=== PATIENT | female | born 1985 | race Caucasian/White ===

== ENCOUNTER 2017-02-19 09:50 | Day surgery (SDC) | payer MEDICAID ==
--- NOTE | 2017-02-18 11:19 | PDGENHP ---
History and Physical - Chief Complaint Right Hip Pain - History of Present Illness Diagnosis: 1. Bilateral~Femoroacetabular impingement (NORAH) Cam type, with~resultant labral tear; RIGHT SIDE SYMPTOMATIC 2. Bilateral~Hip Dyplasia 3. ~~Early Arthritis 4. ~~Clinical suspicion of antetorsion HISTORY OF PRESENT ILLNESS: Anais a 31 y.o.~very ~active female~who I have had the pleasure to consult on today. I have enjoyed meeting her. She~lives in [place], [place], but plans on moving back to [place] in January. 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 ~She~is single; she~has no children. ~ Anaenjoys snowboarding, flag football, basketball, outdoor activities. Gina's right~hip pain started March 2016, with little~recalled trauma or injury, feeling her initial pain following a run, and with no~previous complaints. Anahas~a known history of hip dysplasia. Presentation today is of anterior and posterior right~hip pain. ~The hip does~ wake her~at night and does~click and catch on her. Sitting can be a real struggle~for her. Anadoes~report intermittent suffering from lower back pain episodes. Anahas not~participated in physical therapy and has not~tried other conservative measures. ~~She~has not~received sufficient symptomatic improvement. Anahas~utilized medication for pain management, including NSAID~and recently a Medrol Dose Pack. Anahas used medication for several months. Anacomplains of intermittent~issues with the left~hip. ~ Anaunderstands that she~has a hip and pelvis problem which should be researched and wishes to get a better understanding of her~hip status, followed by an establishment of a treatment strategy, hoping sheJamawould be able to get back to her~well being active life. History: Past medical history: ~ None which is relevant Relevant familial history: Adult Onset Diabetes - Maternal Past surgical history: Left Shoulder Elba Anadenies problematic issues with general anesthesia in the past. I have reviewed, verified and agree with the past medical, surgical, family and social history. Current Medications:~has a current medication list which includes the following prescription(s): ibuprofen. ALLERGIES:~has No Known Allergies. Objective: Physical Examination: Gina~is 5~feet 9~inches tall and weighs 144.6 Lbs. Gina~is AAO x3; she~is well -nourished, in NAD. Skin is warm and dry. ~Breathing is non-labored. ~CV with RRR by pulse. Abdomen is soft, NTND. Currently, she~walks with a abnormal antalgic, favoring left side~gait. Trendelenburg sign is negative~and proprioception is reduced, right~side. She~presents with moderate~signs of joint laxity. Beightons Score: 4 Lower spine examination is negative~for sciatic or femoral nerve irritation with negative~SLR &~femoral stretch tests. Range of motion of the spine is normal~for flexion, extension, and rotations, with no~associated pain. Strength, Sensation and pulses are normal - bilaterally Ankles and knees exams are normal~and no~mal-alignment is evident. She~has~left~.5~cm short leg length discrepancy. Thigh circumference is symmetric~with no evidence for muscle atrophy~on both~ sides. Hip ROM (degrees): FL ER At 90~hip FL IR At 90~hip FL AB AD EX IR Neutral hip ER Neutral hip R 105 45 40 40 5 10 55 35 L 100 45 40 40 5 10 55 35 Specific hip and pelvis tests: Quadrant MILAD Roll Add. Longus R +++ +++ +++ Negative L Negative Negative Negative Negative Glut. Med ITB Pos. Imp R Negative 5/5 strength Negative 5/5 strength Negative L Negative 5/5 strength Negative 5/5 strength Negative Squeeze test measured normal Bony Symphysis pubis is pain free~to touch while concentric activity of the rectus abdominis, does not~produce pain at its insertion. Ilio Psos specific tests are negative for pain during cycling for both hips~and remarkable for non painful snap~on the left. HF has weakness and pain on the the right hip. Anterior/lateral~capsule tenderness on the right side.~ Greater trochanteric burse is painful~on the right hip. Piriformis tests: FAIR is negative, with no~local signs of neuritis related to sciatic nerve. SIJs examination is normal~with normal~MILAD in relation and local tenderness. Hamstrings tests are negative~functional contraction and negative~tendinopathy both hips. On a daily basis, the following percentages reflect Gina's overall total pain: Deep hip: 100% Imaging: Radiology studies which I have personally reviewed, analyzed and measured are below: XR: AP of the hip and pelvis: Performed in a good~technique Coccyx to pubic symphysis distance 1.6~cm. 14~degrees caudal [place] Lines are preserved. Minimal~Pathological signs are seen in the Symphysis Pubis. Minimal~Pathological signs are seen at the Ischial tuberosity. ~ Specific measurements show: NSA~ LCE Sourcil~Angle Sharp's angle Lat. Cam Lat. Pincer C.Over~sign Head~Coverage % ATDmm R N 11 13 41 + - 12-1 69 N L N 18 13 43 + - 12-1 71 N Pos. wall sign ISS NAD ~~Dysplasia Comments R Negative Negative 16.2~mm ++ L Negative Negative 13.1~mm ++ Sclerosis Sup. Lat. OA Cysts Joint Space-WBZ Joint Space-Medial R Negative Negative Negative 3.5~mm 4.2~mm L Negative Negative Negative 3.5~mm 3.8~mm X Table lateral: Anterior cam lesion is seen~on both hips. Alpha Angle: ~ Right 81~dergrees Left 72~degrees Impression and plan: Anais a 31 y.o.~active female~suffering from symptomatic right~hip pain due to Femoroacetabular impingement (NORAH) Cam type, with~resultant labral tear and~ Hip Dyplasia,~causing significant disability to her~and altering her~sport and life activities. Physical examination, imaging, and her~story correspond with the diagnosis mentioned above. I explained that hip dysplasia is a condition wherein the hip joint has excessive play~and instability due to a variety of factors, including the depth and adequacy of the socket, the orientation of the femur bone, and ligament laxity around the hip joint. Dysplasia ranges in severity from borderline to baljinder, with treatment options being specific to the specific nature of the problem. Left untreated, the instability in the hip joint can cause progressive tearing of the labrum and deterioration of the surface cartilage, ultimately resulting in progressive osteoarthritis of the hip. I explained that femoroacetabular impingement (NORAH - Cam type) arises due to a bony or soft tissue conflict between the femur (ball) and acetabulum (socket) caused by an abnormality in the shape of the femoral head and neck. Over time, repetitive impingement can result in damage to the labrum and adjacent surface cartilage within the socket, ultimately giving rise to progressive osteoarthritis of the hip. I explained that although a labral tear can be a source of pain, it is rarely the root of the problem and typically occurs secondary to an underlying abnormality in the shape and mechanics of the hip joint. I reviewed conservative treatment options for Dysplasia and NORAH including activity modification to avoid positions of impingement or instability, physical therapy, non-steroidal anti-inflammatory medications, and various injections (corticosteroid and PRP) aimed at reducing inflammation in the hip joint or/and preventing dynamic instability and impingement. PRP injections may promote healing and reduce symptoms in certain cases but it will not repair chronically damaged tissue. Although these measures may help to buy time~and reduce current level of symptoms, they are not a definitive solution to the problem given the underlying abnormality in the shape of the hip joint. Patients who have failed conservative management and continue to experience symptoms are candidates for definitive surgical treatment, which may consist of hip arthroscopy alone or in combination with more invasive bony realignment procedures of the hip socket and/or femur called periacetabular osteotomy (JOLEEN) or derotational femoral osteotomy (DFO). Hip arthroscopy typically includes treating the labrum with either repair or reconstruction of the torn labrum; as well as addressing the underlying abnormalities by restoring the normal shape to the hip joint. If the cartilage is damaged a Microfracture surgical procedure may also be necessary to help stimulate the growth of fibrocartilage. If a patient requires a labral reconstruction or a Microfracture, the initial rehabilitation from the surgery may take longer, but the termite control representative results are typically favorable. I reviewed the technical aspects of periacetabular osteotomy (JOLEEN) including risks, benefits, and expected course of recovery. Gina~understands that JOLEEN is an inpatient procedure carried out through two medium sized incisions on the front and back of the hip joint. The hip socket is cut, realigned, and stabilized with 2 3 internal screws. Risks include infection, bleeding, injury to nearby nerves or vessels, stiffness, persistent pain, instability, failure of bony healing, implant related complications, and venous thromboembolic disease. Rarely, revision surgery may be required to address these problems. Risks, potential complications, side effects and recovery from surgical procedure were discussed in length. We explained how this surgery is an open procedure, and though patients tend to do well in the long-term, it involves significant pain in the first 2-4 weeks post-op and a rather lengthy rehab.~Overall recovery takes approximately 6 12~months depending on the extent of damage and degree of repair. Anaunderstands that she~will undergo hip arthroscopy 1 week prior to the JOLEEN to address damage inside the hip joint. Anaunderstands that hip arthroscopy and JOLEEN are two separate procedures that are best performed one week apart, with the arthroscopy commencing first to "tighten up" any pathology evident in the hip joint (labral repair, etc.) and the JOLEEN open procedure occurring 7-10 days later to realign the acetabulum. Anawill review the info presented. In order to obtain more detailed information regarding the alignment, orientation, and shape of the bony hip and pelvis I will order a CT scan to be performed. The results of the CT scan, including femoral torsion and acetabular version measured values and 3D images, will aid me in deciding on the best treatment strategy and surgical pre-planning. In order to evaluate the integrity of the surface cartilage within the hip joint , I will order a delayed gadolinium enhanced MRI of cartilage (dGEMRIC). This study will determine whetherRobelis a good candidate for hip preservation surgery. Anawill contact us if she~wishes to pursue further treatment in the future. Anais happy with this plan. I have also supplied her~with handouts, outlining the expected surgical treatment and rehab involved. I wish~Anaall the best, ~~ Marissa Ott ATC History Information - Allergies/Home Medication List Allergies/Adverse Reactions: No Known Allergies Allergy (Unverified 01/15/17 16:47) Home Medications: Naproxen Sodium [Aleve 220 MG (*)] 440 mg PO DAILY PRN 01/15/17 [Last Taken Unknown] Ibuprofen PRN 01/17/17 [Last Taken Unknown] I have personally reviewed and updated: medical history - Social History Smoking Status: Never smoked Review of Systems Review of Systems: Physical Exam Physical Exam:
[2017-02-19] MEDS ORDERED: ceFAZolin 2 GM/SWFI 2 GM/20 ML SYR IVP ONE (10:15)
[2017-02-19] MEDS ORDERED: PREGABALIN 150 MG CAP PO ONE (10:15)
[2017-02-19] MEDS ORDERED: ACETAMINOPHEN 500 MG TAB PO ONE (10:15)
[2017-02-19] MEDS ORDERED: LIDOCAINE 1% 2 ML INJ ID PRN (10:16)
[2017-02-19] MEDS ORDERED: LR 1,000 ML IV ONE (10:16)
--- NOTE | 2017-02-19 10:23 | PDANEPAE ---
ANE History of Present Illness 31 year old female with femoroacetabular impingment and hip dysplasia presents for right hip arthroscopy and femoroplasty. ANE Past Medical History - Cardiovascular History Hx Hypertension: No Hx Arrhythmias: No Hx Chest Pain: No Hx Coronary Artery / Peripheral Vascular Disease: No Hx CHF / Valvular Disease: No Hx Palpitations: No - Pulmonary History Hx COPD: No Hx Asthma/Reactive Airway Disease: No Hx Recent Upper Respiratory Infection: No Hx Oxygen in Use at Home: No Hx Sleep Apnea: No Sleep Apnea Screening Result - Last Documented: Negative - Neurologic History Hx Cerebrovascular Accident: No Hx Seizures: No Hx Dementia: No - Endocrine History Hx Diabetes: No Hypothyroid: No Hyperthyroid: No Obesity: no - Renal History Hx Renal Disorders: No - Liver History Hx Hepatic Disorders: No - Neurological & Psychiatric Hx Hx Neurological and Psychiatric Disorders: No - Cancer History Hx Cancer: No - Congenital Disorder History Hx Congenital Disorders: No - GI History Hx Gastrointestinal Disorders: No - Other Health History Other Health History: right hip dysplasia with torn labrum - Chronic Pain History Chronic Pain: No - Surgical History Prior Surgeries: shoulder repair ANE Review of Systems Review of Systems: - Exercise capacity Exercise capacity: >=4 METS METS (RN): 6 METS - Systems Muscolosketal: Reports: joint pain ANE Patient History - Allergies Allergies/Adverse Reactions: No Known Allergies Allergy (Unverified 01/15/17 16:47) - Home Medications Home medications: home medication list seen and reviewed Home Medications: Naproxen Sodium [Aleve 220 MG (*)] 440 mg PO DAILY PRN 01/15/17 [Last Taken 08/29] Ibuprofen PRN 01/17/17 [Last Taken 02/08/17] - NPO status NPO Status: no food or drink >8 hours - Anes Hx Anes Hx: post operative nausea and vomiting - Smoking Hx Smoking Status: Never smoked Marijuana use: No - Alcohol Use Alcohol Use: Rarely - Family Anes Hx Family Anes Hx: neg - N/A Family Hx Anesthesia Complications: none ANE Labs/Vital Signs - Vital Signs Vital Signs: reviewed preoperatively; see RN documention for details Height: 175.26 cm Weight: 68.039 kg ANE Physical Exam - Airway Neck exam: FROM Mallampati Score: Class 1 Mouth exam: normal dental/mouth exam - Pulmonary Pulmonary: no respiratory distress - Cardiovascular Cardiovascular: regular rate and rhythym - ASA Status ASA Status: I ANE Anesthesia Plan Anesthesia Plan: general endotracheal anesthesia Total IV Anesthesia: No
[2017-02-19] MEDS ORDERED: MIDAZOLAM 2 MG/2 ML VIAL IVP ONE (11:46)
[2017-02-19] MEDS ORDERED: BUPIVACAINE 0.25% 30 ML SDV ONE (11:52)
[2017-02-19] MEDS ORDERED: REMIFENTANIL HCL 1 MG VIAL ONE (11:53)
[2017-02-19] MEDS ORDERED: fentaNYL 100 MCG/2 ML INJ ONE ×5 (11:53→18:19)
[2017-02-19] MEDS ORDERED: PROPOFOL/EMULSION 500 MG/50 ML BOTTLE IV ONE ×2 (11:53→14:07)
[2017-02-19] MEDS ORDERED: PROPOFOL 200 MG/20 ML VIAL ONE (11:53)
[2017-02-19] MEDS ORDERED: EPINEPHrine 30 MG/30 ML MDV (0.1 MG/0.1 ML) ONE (11:53)
[2017-02-19] MEDS ORDERED: SCOPOLAMINE HYDROBROMIDE 1 MG/3 DAYS PATCH TD SCH (12:00)
[2017-02-19] MEDS ORDERED: LIDOCAINE 2% 5 ML SDV ONE (12:01)
[2017-02-19] MEDS ORDERED: ROCURONIUM 50 MG/5 ML VIAL ONE (12:02)
[2017-02-19] MEDS ORDERED: ONDANSETRON 4 MG/2 ML VIAL ONE (12:46)
[2017-02-19] MEDS ORDERED: DEXAMETHASONE 4 MG/ML VIAL ONE (12:46)
[2017-02-19] MEDS ORDERED: PHENYLEPHRINE HCL 100 MCG/ML SYR IVP PRN (13:43)
[2017-02-19] MEDS ORDERED: OXYCODONE/APAP 5/325 TAB PO PRN ×2 (13:43→17:59)
[2017-02-19] MEDS ORDERED: ONDANSETRON 4 MG/2 ML VIAL IVP PRN (13:43)
[2017-02-19] MEDS ORDERED: LR 500 ML IV PRN (13:43)
[2017-02-19] MEDS ORDERED: epHEDrine SULFATE 10 MG/ML SYR IVP PRN (13:43)
[2017-02-19] MEDS ORDERED: HYDROmorphONE/DILAUDID 1 MG/ML INJ IVP PRN (13:43)
[2017-02-19] MEDS ORDERED: NALOXONE HCL 0.4 MG/ML INJ IVP PRN (13:43)
[2017-02-19] MEDS: fentaNYL 100 MCG/2 ML INJ IVP PRN ×4 (16:27→17:19)
[2017-02-19 17:38] VITALS: TEMP 97.7
[2017-02-19] MEDS ORDERED: OXYCODONE/APAP 5/325 TAB ONE (18:08)
--- NOTE | 2017-02-19 18:15 | POSTANESTH ---
Post Anesthetic Evaluation Cardiovascular Status: Normal, Stable, Similar to Pre-Op Cond Respiratory Status: Normal, Stable, Similar to Pre-op Cond. Level of Consciousness/Mental Status: Can Participate in Eval, Alert and Oriented Pain Control: Adequate, Prn Tx Ordered Nausea/Vomiting Control: Adequate, Prn Tx Ordered Complications Possibly Related to Anesthesia: None Noted
[2017-02-19 18:30] VITALS: BP 134/76; RESP 21; O2SAT 93
[2017-02-19 18:38] VITALS: PULSE 93
[2017-02-19] MEDS ORDERED: fentaNYL 100 MCG/2 ML INJ IVP ONE (18:45)
[2017-02-22] MEDS ORDERED: PATCH REMOVAL 1 EA PATCH TD SCH (11:47)
== END 2017-02-19 19:23 | disposition home or self-care (01) ==
LOC: FSGY 09:50
PROVIDERS: ATTEND Orthopaedic Surgery Sports Medicine
PROC: 4A1 Measurement and Monitoring, Physiological Systems, Monitoring (ICD-10-PCS; principal; 2017-02-19 11:30)
PROC: 0MQL4ZZ Repair Right Hip Bursa and Ligament, Percutaneous Endoscopic Approach (ICD-10-PCS; principal; 2017-02-19 11:30)
PROC: 4A1 Measurement and Monitoring, Physiological Systems, Monitoring (ICD-10-PCS; principal; 2017-02-19 11:30)
PROC: 0QQ64ZZ Repair Right Upper Femur, Percutaneous Endoscopic Approach (ICD-10-PCS; principal; 2017-02-19 11:30)
DX: Q65.89 Other specified congenital deformities of hip (principal); M76.891 Other specified enthesopathies of right lower limb, excluding foot; M24.151 Other articular cartilage disorders, right hip
CPT/HCPCS: C1713; J0171; J0690; J1100; J2250; J2405; J2704; J3010

== ENCOUNTER 2017-02-26 07:39 | Inpatient (IN) | payer MEDICAID ==
--- NOTE | 2017-02-22 06:46 | PDGENHP ---
History and Physical - Chief Complaint RIGHT HIP PAIN - History of Present Illness Diagnosis: 1. Bilateral~Femoroacetabular impingement (NORAH) Cam type, with~resultant labral tear; RIGHT SIDE SYMPTOMATIC 2. Bilateral~Hip Dyplasia 3. ~~Early Arthritis 4. ~~Clinical suspicion of antetorsion HISTORY OF PRESENT ILLNESS: Anais a 31 y.o.~very ~active female~who I have had the pleasure to consult on today. I have enjoyed meeting her. She~lives in [place], [place], but plans on moving back to [place] in January. 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 ~She~is single; she~has no children. ~ Anaenjoys snowboarding, flag football, basketball, outdoor activities. Gina's right~hip pain started March 2016, with little~recalled trauma or injury, feeling her initial pain following a run, and with no~previous complaints. Anahas~a known history of hip dysplasia. Presentation today is of anterior and posterior right~hip pain. ~The hip does~ wake her~at night and does~click and catch on her. Sitting can be a real struggle~for her. Anadoes~report intermittent suffering from lower back pain episodes. Anahas not~participated in physical therapy and has not~tried other conservative measures. ~~She~has not~received sufficient symptomatic improvement. Anahas~utilized medication for pain management, including NSAID~and recently a Medrol Dose Pack. Anahas used medication for several months. Anacomplains of intermittent~issues with the left~hip. ~ Anaunderstands that she~has a hip and pelvis problem which should be researched and wishes to get a better understanding of her~hip status, followed by an establishment of a treatment strategy, hoping sheJamawould be able to get back to her~well being active life. History: Past medical history: ~ None which is relevant Relevant familial history: Adult Onset Diabetes - Maternal Past surgical history: Left Shoulder Elba Anadenies problematic issues with general anesthesia in the past. I have reviewed, verified and agree with the past medical, surgical, family and social history. Current Medications:~has a current medication list which includes the following prescription(s): ibuprofen. ALLERGIES:~has No Known Allergies. Objective: Physical Examination: Gina~is 5~feet 9~inches tall and weighs 144.6 Lbs. Gina~is AAO x3; she~is well -nourished, in NAD. Skin is warm and dry. ~Breathing is non-labored. ~CV with RRR by pulse. Abdomen is soft, NTND. Currently, she~walks with a abnormal antalgic, favoring left side~gait. Trendelenburg sign is negative~and proprioception is reduced, right~side. She~presents with moderate~signs of joint laxity. Beightons Score: 4 Lower spine examination is negative~for sciatic or femoral nerve irritation with negative~SLR &~femoral stretch tests. Range of motion of the spine is normal~for flexion, extension, and rotations, with no~associated pain. Strength, Sensation and pulses are normal - bilaterally Ankles and knees exams are normal~and no~mal-alignment is evident. She~has~left~.5~cm short leg length discrepancy. Thigh circumference is symmetric~with no evidence for muscle atrophy~on both~ sides. Hip ROM (degrees): FL ER At 90~hip FL IR At 90~hip FL AB AD EX IR Neutral hip ER Neutral hip R 105 45 40 40 5 10 55 35 L 100 45 40 40 5 10 55 35 Specific hip and pelvis tests: Quadrant MILAD Roll Add. Longus R +++ +++ +++ Negative L Negative Negative Negative Negative Glut. Med ITB Pos. Imp R Negative 5/5 strength Negative 5/5 strength Negative L Negative 5/5 strength Negative 5/5 strength Negative Squeeze test measured normal Bony Symphysis pubis is pain free~to touch while concentric activity of the rectus abdominis, does not~produce pain at its insertion. Ilio Psos specific tests are negative for pain during cycling for both hips~and remarkable for non painful snap~on the left. HF has weakness and pain on the the right hip. Anterior/lateral~capsule tenderness on the right side.~ Greater trochanteric burse is painful~on the right hip. Piriformis tests: FAIR is negative, with no~local signs of neuritis related to sciatic nerve. SIJs examination is normal~with normal~MILAD in relation and local tenderness. Hamstrings tests are negative~functional contraction and negative~tendinopathy both hips. On a daily basis, the following percentages reflect Gina's overall total pain: Deep hip: 100% Imaging: Radiology studies which I have personally reviewed, analyzed and measured are below: XR: AP of the hip and pelvis: Performed in a good~technique Coccyx to pubic symphysis distance 1.6~cm. 14~degrees caudal [place] Lines are preserved. Minimal~Pathological signs are seen in the Symphysis Pubis. Minimal~Pathological signs are seen at the Ischial tuberosity. ~ Specific measurements show: NSA~ LCE Sourcil~Angle Sharp's angle Lat. Cam Lat. Pincer C.Over~sign Head~Coverage % ATDmm R N 11 13 41 + - 12-1 69 N L N 18 13 43 + - 12-1 71 N Pos. wall sign ISS NAD ~~Dysplasia Comments R Negative Negative 16.2~mm ++ L Negative Negative 13.1~mm ++ Sclerosis Sup. Lat. OA Cysts Joint Space-WBZ Joint Space-Medial R Negative Negative Negative 3.5~mm 4.2~mm L Negative Negative Negative 3.5~mm 3.8~mm X Table lateral: Anterior cam lesion is seen~on both hips. Alpha Angle: ~ Right 81~dergrees Left 72~degrees Impression and plan: Anais a 31 y.o.~active female~suffering from symptomatic right~hip pain due to Femoroacetabular impingement (NORAH) Cam type, with~resultant labral tear and~ Hip Dyplasia,~causing significant disability to her~and altering her~sport and life activities. Physical examination, imaging, and her~story correspond with the diagnosis mentioned above. I explained that hip dysplasia is a condition wherein the hip joint has excessive play~and instability due to a variety of factors, including the depth and adequacy of the socket, the orientation of the femur bone, and ligament laxity around the hip joint. Dysplasia ranges in severity from borderline to baljinder, with treatment options being specific to the specific nature of the problem. Left untreated, the instability in the hip joint can cause progressive tearing of the labrum and deterioration of the surface cartilage, ultimately resulting in progressive osteoarthritis of the hip. I explained that femoroacetabular impingement (NORAH - Cam type) arises due to a bony or soft tissue conflict between the femur (ball) and acetabulum (socket) caused by an abnormality in the shape of the femoral head and neck. Over time, repetitive impingement can result in damage to the labrum and adjacent surface cartilage within the socket, ultimately giving rise to progressive osteoarthritis of the hip. I explained that although a labral tear can be a source of pain, it is rarely the root of the problem and typically occurs secondary to an underlying abnormality in the shape and mechanics of the hip joint. I reviewed conservative treatment options for Dysplasia and NORAH including activity modification to avoid positions of impingement or instability, physical therapy, non-steroidal anti-inflammatory medications, and various injections (corticosteroid and PRP) aimed at reducing inflammation in the hip joint or/and preventing dynamic instability and impingement. PRP injections may promote healing and reduce symptoms in certain cases but it will not repair chronically damaged tissue. Although these measures may help to buy time~and reduce current level of symptoms, they are not a definitive solution to the problem given the underlying abnormality in the shape of the hip joint. Patients who have failed conservative management and continue to experience symptoms are candidates for definitive surgical treatment, which may consist of hip arthroscopy alone or in combination with more invasive bony realignment procedures of the hip socket and/or femur called periacetabular osteotomy (JOLEEN) or derotational femoral osteotomy (DFO). Hip arthroscopy typically includes treating the labrum with either repair or reconstruction of the torn labrum; as well as addressing the underlying abnormalities by restoring the normal shape to the hip joint. If the cartilage is damaged a Microfracture surgical procedure may also be necessary to help stimulate the growth of fibrocartilage. If a patient requires a labral reconstruction or a Microfracture, the initial rehabilitation from the surgery may take longer, but the co founder and president results are typically favorable. I reviewed the technical aspects of periacetabular osteotomy (JOLEEN) including risks, benefits, and expected course of recovery. Gina~understands that JOLEEN is an inpatient procedure carried out through two medium sized incisions on the front and back of the hip joint. The hip socket is cut, realigned, and stabilized with 2 3 internal screws. Risks include infection, bleeding, injury to nearby nerves or vessels, stiffness, persistent pain, instability, failure of bony healing, implant related complications, and venous thromboembolic disease. Rarely, revision surgery may be required to address these problems. Risks, potential complications, side effects and recovery from surgical procedure were discussed in length. We explained how this surgery is an open procedure, and though patients tend to do well in the long-term, it involves significant pain in the first 2-4 weeks post-op and a rather lengthy rehab.~Overall recovery takes approximately 6 12~months depending on the extent of damage and degree of repair. Anaunderstands that she~will undergo hip arthroscopy 1 week prior to the JOLEEN to address damage inside the hip joint. Anaunderstands that hip arthroscopy and JOLEEN are two separate procedures that are best performed one week apart, with the arthroscopy commencing first to "tighten up" any pathology evident in the hip joint (labral repair, etc.) and the JOLEEN open procedure occurring 7-10 days later to realign the acetabulum. Anawill review the info presented. In order to obtain more detailed information regarding the alignment, orientation, and shape of the bony hip and pelvis I will order a CT scan to be performed. The results of the CT scan, including femoral torsion and acetabular version measured values and 3D images, will aid me in deciding on the best treatment strategy and surgical pre-planning. In order to evaluate the integrity of the surface cartilage within the hip joint , I will order a delayed gadolinium enhanced MRI of cartilage (dGEMRIC). This study will determine whetherRobelis a good candidate for hip preservation surgery. Anawill contact us if she~wishes to pursue further treatment in the future. Anais happy with this plan. I have also supplied her~with handouts, outlining the expected surgical treatment and rehab involved. I wish~Anaall the best, ~~ Marissa Ott ATC History Information - Allergies/Home Medication List Allergies/Adverse Reactions: No Known Allergies Allergy (Unverified 01/15/17 16:47) Home Medications: Naproxen Sodium [Aleve 220 MG (*)] 440 mg PO DAILY PRN 01/15/17 [Last Taken 08/29] Ibuprofen PRN 01/17/17 [Last Taken 02/08/17] I have personally reviewed and updated: medical history - Social History Smoking Status: Never smoked Review of Systems Review of Systems: Physical Exam Physical Exam:
[2017-02-26] MEDS ORDERED: ACETAMINOPHEN 500 MG TAB PO ONE (07:47)
[2017-02-26] MEDS ORDERED: PREGABALIN 150 MG CAP PO ONE (07:47)
[2017-02-26] MEDS ORDERED: SCOPOLAMINE HYDROBROMIDE 1 MG/3 DAYS PATCH TD ONE (07:47)
[2017-02-26] MEDS ORDERED: ceFAZolin 2 GM/SWFI 2 GM/20 ML SYR IVP ONE (07:47)
[2017-02-26] MEDS ORDERED: LIDOCAINE 1% 2 ML INJ ONE (07:56)
[2017-02-26] MEDS ORDERED: TRANEXAMIC ACID 1,000 MG in NS 100 ML IV ONE (08:00)
[2017-02-26] MEDS ORDERED: LIDOCAINE 1% 2 ML INJ ID PRN (08:10)
[2017-02-26] MEDS ORDERED: LR 1,000 ML IV ONE (08:10)
--- NOTE | 2017-02-26 08:30 | PDHPUP ---
History & Physical Update H&P update statement: This history and physical update is based on an assessment of the patient which was completed after admission or registration (within 24 hours), but prior to the surgery/procedure. H&P update: no change in patient's condition since H&P completed
[2017-02-26] MEDS ORDERED: PROMETHAZINE HCL 25 MG/ML INJ IVP PRN (09:30)
[2017-02-26] MEDS ORDERED: HYDROCODONE/APAP 5/325 TAB PO PRN (09:30)
[2017-02-26] MEDS ORDERED: MIDAZOLAM 2 MG/2 ML VIAL IVP ONE (09:30)
[2017-02-26] MEDS ORDERED: OXYCODONE/APAP 5/325 TAB PO PRN (09:30)
[2017-02-26] MEDS ORDERED: NALOXONE HCL 0.4 MG/ML INJ IVP PRN ×3 (09:30→15:30)
[2017-02-26] MEDS ORDERED: LR 500 ML IV PRN (09:30)
[2017-02-26] MEDS ORDERED: ONDANSETRON 4 MG/2 ML VIAL IVP PRN ×3 (09:30→15:30)
--- NOTE | 2017-02-26 09:32 | PDANEPAE ---
ANE History of Present Illness R JOLEEN ANE Past Medical History - Cardiovascular History Hx Hypertension: No Hx Arrhythmias: No Hx Chest Pain: No Hx Coronary Artery / Peripheral Vascular Disease: No Hx CHF / Valvular Disease: No Hx Palpitations: No - Pulmonary History Hx COPD: No Hx Asthma/Reactive Airway Disease: No Hx Recent Upper Respiratory Infection: No Hx Oxygen in Use at Home: No Hx Sleep Apnea: No Sleep Apnea Screening Result - Last Documented: Negative - Neurologic History Hx Cerebrovascular Accident: No Hx Seizures: No Hx Dementia: No - Endocrine History Hx Diabetes: No - Renal History Hx Renal Disorders: No - Liver History Hx Hepatic Disorders: No - Neurological & Psychiatric Hx Hx Neurological and Psychiatric Disorders: No - Cancer History Hx Cancer: No - Congenital Disorder History Hx Congenital Disorders: No - GI History Hx Gastrointestinal Disorders: No - Other Health History Other Health History: right hip dysplasia with torn labrum - Chronic Pain History Chronic Pain: No - Surgical History Prior Surgeries: shoulder repair ANE Review of Systems Review of Systems: - Exercise capacity METS (RN): 6 METS ANE Patient History - Allergies Allergies/Adverse Reactions: No Known Allergies Allergy (Unverified 01/15/17 16:47) - Home Medications Home Medications: Naproxen Sodium [Aleve 220 MG (*)] 440 mg PO DAILY PRN 01/15/17 [Last Taken 08/29] Ibuprofen PRN 01/17/17 [Last Taken 02/08/17] oxyCODONE HCL/ACETAMINOPHEN [Oxycodone-Acetaminophen 5-325] 02/26/17 [Last Taken 02/25/17 06:00] - NPO status NPO Since - Liquids (Date): 02/25/17 NPO Since - Liquids (Time): 19:00 NPO Since - Solids (Date): 02/25/17 NPO Since - Solids (Time): 19:00 - Smoking Hx Smoking Status: Never smoked - Family Anes Hx Family Hx Anesthesia Complications: none ANE Labs/Vital Signs - Labs Result Diagrams: 02/26/17 08:35 - Vital Signs Blood Pressure: 117/82 Heart Rate: 77 Respiratory Rate: 16 O2 Sat (%): 94 Height: 175 cm Weight: 68 kg ANE Physical Exam - Airway Neck exam: FROM Mallampati Score: Class 2 Mouth exam: normal dental/mouth exam - Pulmonary Pulmonary: clear to auscultation - Cardiovascular Cardiovascular: regular rate and rhythym - ASA Status ASA Status: I ANE Anesthesia Plan Anesthesia Plan: general endotracheal anesthesia, spinal
[2017-02-26] MEDS ORDERED: ROCURONIUM 100 MG/10 ML VIAL ONE (09:36)
[2017-02-26] MEDS ORDERED: PROPOFOL 200 MG/20 ML VIAL ONE (09:36)
[2017-02-26] MEDS ORDERED: fentaNYL 100 MCG/2 ML INJ ONE ×3 (09:36→15:32)
[2017-02-26] MEDS ORDERED: morphINE PF 5 MG/10 ML INJ ONE (09:45)
[2017-02-26] MEDS ORDERED: ONDANSETRON 4 MG/2 ML VIAL ONE ×2 (10:01→15:19)
[2017-02-26] MEDS ORDERED: DEXAMETHASONE 4 MG/ML VIAL ONE (10:01)
[2017-02-26] MEDS ORDERED: METOCLOPRAMIDE 10 MG/2 ML VIAL ONE (10:02)
[2017-02-26] MEDS ORDERED: RANITIDINE 50 MG/2 ML VIAL ONE (10:03)
[2017-02-26] MEDS ORDERED: PHENYLEPHRINE HCL 100 MCG/ML SYR ONE ×4 (10:15→14:21)
[2017-02-26] MEDS ORDERED: CITRATE DEXTROSE SOLN 500 ML BAG ONE ×2 (10:23→12:31)
[2017-02-26] MEDS ORDERED: ROCURONIUM 50 MG/5 ML VIAL ONE (12:43)
[2017-02-26] MEDS ORDERED: MAGNESIUM HYDROXIDE 30 ML UDCUP PO PRN (15:03)
[2017-02-26] MEDS ORDERED: LACTULOSE 20 GM/30 ML UDCUP PO PRN (15:03)
[2017-02-26] MEDS ORDERED: POLYETHYLENE GLYCOL 3350 17 GM PKT PO PRN (15:03)
[2017-02-26] MEDS ORDERED: BISACODYL 10 MG SUPP PR PRN (15:03)
[2017-02-26] MEDS ORDERED: ONDANSETRON DISINTEGRATING 4 MG TAB PO PRN (15:03)
[2017-02-26] MEDS ORDERED: ACETAMINOPHEN 325 MG TAB PO PRN (15:03)
[2017-02-26] MEDS ORDERED: HYDROmorphONE/DILAUDID 6 MG/30 ML PCA IV PRN (15:09)
[2017-02-26] MEDS: fentaNYL 100 MCG/2 ML INJ IVP PRN ×4 (15:15→16:08)
[2017-02-26] MEDS ORDERED: METOCLOPRAMIDE 10 MG/2 ML VIAL IVP PRN (15:30)
[2017-02-26] MEDS ORDERED: RN MESSAGE:REGARDING ANALGESIC ORDERING DR MISC SCH (15:30)
[2017-02-26] MEDS ORDERED: HYDROmorphONE/DILAUDID 1 MG/ML INJ ONE (15:32)
[2017-02-26] MEDS: HYDROmorphONE/DILAUDID 1 MG/ML INJ IVP PRN ×2 (15:34→15:48)
[2017-02-26] MEDS: NS 1,000 ML IV SCH (17:15)
[2017-02-26] MEDS: oxyCODONE IR 5 MG TAB PO SCH ×2 (17:18→21:21)
[2017-02-26] MEDS: RN MESSAGE:DATE/TIME OF ADMIN MISC SCH (17:23)
[2017-02-26] MEDS: DIAZEPAM 2 MG TAB PO PRN (18:44)
[2017-02-26] MEDS: ceFAZolin 2 GM/DEXTROSE 100 ML IV SCH (18:44)
--- NOTE | 2017-02-26 19:08 | SUROPNOTE ---
TERI Operative Report - Surgery Surgery was performed at [facility] on 02/26/17~ Diagnosis: Right 1. Hip Acetabular Dysplasia ~ Operation: Right~[place] Acetabular Osteotomy (JOLEEN) Surgeon: Ander Baker MD Laboratory Immunologist:~~Rebecca Choe MD Anesthetic: General + Spinal Procedure: General anesthetic. Antibiotics given. Cell saver in use. Fluoroscopy. Phase 1: Position lateral, diagonal skin incision between ischial tuberosity and greater trochanter as for posterior hip approach. Blunt split of glut max fibers. Identification of fat pad overlying sciatic nerve. Exposure of sciatic nerve under fat pad, gently retracting it away-medially to ischial tuberosity. Exposure of subcotoloid fossa proximal to short rotators. Using osteotomes and under fluoroscopy, osteotomy of subcotoloid fossa to sciatic notch proximal to ischial spine. Closure of lateral cut. Patient is turned supine. Phase 2: Skin incision just distal to ASIS. Using diathermy the iliac spine was exposed and inguinal ligament + Sartorious were retracted medially, taking the LFCN with them, protecting it. Inner ilium was dissected from iliacus muscle bluntly , with a cob and swab. Dissection continued towards lateral superior ramus pubis. Using fluoroscopy an osteotomy of lateral superior ramus, just medial to tear drop, was performed with curved fish mouth osteotome. Phase 3: Osteotomy lines of the ilium were marked with diathermy as pre planned according to XR/CT and expected correction of acatabulum. 2 Shanz screws were drilled into central acetabular fragment, corresponding with planned correction angles, in order to mobilize central acetabular fragment after osteotomy is complete. ~Iliac osteotomy was performed with reciprocating saw and the main acetabular fragment was moved to realign weight bearing position. After confirmation of correction using fluoroscopy in AP and false profile planes, the fragment was fixed with 3 - 5.5mm ~full threaded~screws. Inguinal ligament and Sartorious were attached back to ASIS through drill holes. Incision was closed according to soft tissue layers. Skin was closed with subdermal Monocryl. Final fluoro shots were obtained to confirm position/correction. After surgery Gina~moved both lower limbs and had no NV motor compromise. Specimen - none Complication - none Evaluation under anesthesia: IR at 90 degrees hip flexion prior to JOLEEN was 40~degrees and after JOLEEN was 25~ degrees. Bleedin~cc into cell-saver, 540~of blood products were returned to patient. Post op instructions: 1. Non~weight bearing crutches for 6 weeks 2. Epidural analgesia for 24-48 hours 3. Continuous SCD 4. Aspirin 81 mg X1 day once Epidural is discontinued 5. Avoid hip flexion past 90 and hip External rotation. 6. PT according to my recommendations at follow up visit Kind regards, Dr. Ander Baker .
[2017-02-26] MEDS ORDERED: morphINE PCA 30 MG/30 ML PCA IV PRN (20:52)
[2017-02-26] MEDS ORDERED: SENNOSIDES 17.6 MG/10 ML UDL PO SCH (21:00)
[2017-02-26] MEDS: SENNOSIDES/DOCUSATE SODIUM TAB PO SCH (21:03)
[2017-02-27] MEDS: RN MESSAGE:DATE/TIME OF ADMIN MISC SCH ×2 (01:56→15:35)
[2017-02-27] MEDS: oxyCODONE IR 5 MG TAB PO SCH ×6 (02:07→20:38)
[2017-02-27] MEDS: ceFAZolin 2 GM/DEXTROSE 100 ML IV SCH (02:08)
[2017-02-27] MEDS: NS 1,000 ML IV SCH ×2 (02:10→11:36)
[2017-02-27] MEDS: DIAZEPAM 2 MG TAB PO PRN ×2 (05:19→11:36)
[2017-02-27] MEDS: oxyCODONE IR 5 MG TAB PO PRN (05:57)
[2017-02-27] MEDS ORDERED: HYDROmorphONE/DILAUDID 1 MG/ML INJ IVP PRN (06:15)
[2017-02-27] MEDS: HYDROmorphONE/DILAUDID 1 MG/ML INJ IVP SCH ×11 (08:07→19:07)
[2017-02-27] MEDS: SENNOSIDES/DOCUSATE SODIUM TAB PO SCH ×2 (09:30→20:38)
--- NOTE | 2017-02-27 11:53 | ASMTCMCOM ---
CM Note CM Note Notes: Patient is POD #[address] Salma Wilde. I spoke with her about discharge - she is planning on returning home to [place] with her mom and other family. She has outpatient PT scheduled for 6 weeks post-op. If she has any other discharge needs, CM can assist. Current CM Discharge plan: home with mom, outpatient PT Date Signed: 02/27/2017 11:53 AM Electronically Signed By:Kayla Yap RN
[2017-02-27] MEDS ORDERED: diphenhydrAMINE 25 MG CAP PO PRN (18:18)
[2017-02-27] MEDS ORDERED: NALOXONE HCL 0.4 MG/ML INJ IVP PRN (18:18)
--- NOTE | 2017-02-27 18:30 | SOAPPROG ---
SOAP Progress Note Assessment/Plan: Assessment: 1 day post op Right Periacetabular Osteotomy Plan: Dilaudid TANK CALIBRATOR Ma until Gina is comfortable with going to the bathroom Up with PT/OT Pelvis Xray on 02/27/17 18:24 Subjective: Gina had increased pain with the Morphine TANK CALIBRATOR so this got switched over to IVP Dilaudid which worked better for the pain and she is now well pain managed. She denies any cp, sob, nausea. No thigh numbness. Objective: Vital Signs Temp Pulse Resp BP Pulse Ox 37.2 C 116 H 16 102/55 L 98 02/27/17 17:57 02/27/17 17:57 02/27/17 17:57 02/27/17 17:57 02/27/17 17:57 Laboratory Results 02/27/17 05:19 02/27/17 05:19 02/26/17 02/27/17 02/28/17 05:59 05:59 05:59 Intake Total 5575 1905 Output Total 5100 2800 Balance 475 -895 Well appearing in NAD Right Hip: dressings clean dry intact surrounding ecchymosis and edema NVI distally full ROM of foot and ankle - Pending Discharge Pending Discharge Within 48 Hours: Yes Pending Discharge Date: 03/01/17 Pending Discharge Time: 11:00 ICD10 Worksheet Patient Problems: Problems Problem Status Onset Post-operative pain Acute - ICD10 Problem Qualifiers (1) Post-operative pain
[2017-02-27] MEDS: HYDROmorphONE/DILAUDID 6 MG/30 ML PCA IV PRN (18:42)
[2017-02-28] MEDS: DIAZEPAM 2 MG TAB PO PRN ×4 (00:14→20:30)
[2017-02-28] MEDS: HYDROmorphONE/DILAUDID 6 MG/30 ML PCA IV PRN ×4 (01:03→20:49)
[2017-02-28] MEDS: oxyCODONE IR 5 MG TAB PO SCH ×6 (01:06→21:00)
[2017-02-28] MEDS: SENNOSIDES/DOCUSATE SODIUM TAB PO SCH ×2 (07:43→20:55)
--- NOTE | 2017-02-28 07:48 | SOAPPROG ---
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 no cp or sob, doing IS. passing flatus, nausea controlled with scopolamine patch. no n/t in legs. having some muscle spasms - has not been taking valium. Objective: Vital Signs Temp Pulse Resp BP Pulse Ox 37.2 C 97 18 122/73 H 100 02/28/17 06:37 02/28/17 06:37 02/28/17 06:37 02/28/17 06:37 02/28/17 06:37 Laboratory Results 02/27/17 05:19 02/27/17 05:19 02/27/17 02/28/17 03/01/17 05:59 05:59 05:59 Intake Total 5575 2905 Output Total 5100 7200 Balance 475 -4295 GEN - NAD, AO ABD - soft, NT, ND BLE - - dressings c/d/i, surrounding ecchymosis and edema - SILT L5 - S1 and symmetric - 5/5 dorsi and plantar flexion, thigh adduction - BCR, WWP ICD10 Worksheet Patient Problems: Problems Problem Status Onset Post-operative pain Acute
[2017-02-28] MEDS: ASPIRIN EC 81 MG TAB PO SCH (16:41)
[2017-02-28] MEDS: oxyCODONE IR 5 MG TAB PO PRN ×2 (21:57→22:48)
[2017-03-01] MEDS: DIAZEPAM 2 MG TAB PO PRN ×3 (02:09→18:58)
[2017-03-01] MEDS: oxyCODONE IR 5 MG TAB PO SCH ×6 (02:10→21:54)
[2017-03-01] MEDS: NS 1,000 ML IV SCH (05:47)
[2017-03-01] MEDS: HYDROmorphONE/DILAUDID 6 MG/30 ML PCA IV PRN (08:20)
[2017-03-01] MEDS: SENNOSIDES/DOCUSATE SODIUM TAB PO SCH ×2 (11:18→21:54)
[2017-03-01] MEDS: ASPIRIN EC 81 MG TAB PO SCH (11:25)
--- NOTE | 2017-03-01 20:45 | SOAPPROG ---
SOAP Progress Note Assessment/Plan: Assessment: Plan: 03/01/17 20:44 POD 3, pain well managed. moves LL well, SCD in place. feels good today, OT/PT goes well/cleared, want to go home tomorrow. Dr Fierro Objective: Vital Signs Temp Pulse Resp BP Pulse Ox 37.5 C 114 H 16 116/75 93 03/01/17 20:00 03/01/17 20:00 03/01/17 20:00 03/01/17 20:00 03/01/17 20:00 Laboratory Results 02/27/17 05:19 02/27/17 05:19 02/28/17 03/01/17 03/02/17 05:59 05:59 05:59 Intake Total 2905 2950 Output Total 7200 2305 600 Balance -4295 647 -600 ICD10 Worksheet Patient Problems: Problems Problem Status Onset Post-operative pain Acute
[2017-03-02] MEDS: DIAZEPAM 2 MG TAB PO PRN (00:43)
[2017-03-02] MEDS: oxyCODONE IR 5 MG TAB PO SCH ×3 (02:08→09:23)
[2017-03-02 03:19] VITALS: RESP 16
[2017-03-02 08:00] VITALS: BP 104/56; PULSE 89; TEMP 98.8; O2SAT 91
[2017-03-02] MEDS: ASPIRIN EC 81 MG TAB PO SCH (09:23)
[2017-03-02] MEDS: SENNOSIDES/DOCUSATE SODIUM TAB PO SCH (09:32)
[2017-03-02] MEDS ORDERED: SCOPOLAMINE HYDROBROMIDE 1 MG/3 DAYS PATCH TD PRN (12:12)
--- NOTE | 2017-03-02 13:56 | ASDISCHSUM ---
Discharge Information Plan Status:Home with No Needs Medically Cleared to Leave: Discharge Date:03/02/2017 01:14 PM CM D/C Disposition:Home, Routine, Self-Care ADT D/C Disposition:Home, Routine, Self-Care Projected Discharge Date:03/02/2017 01:14 PM Transportation at D/C: Discharge Delay Reason: Follow-Up Date:03/02/2017 01:14 PM Discharge Slot: Final Diagnosis: Placement Information Patient Contact Information Contact Name:JEFFERY Relationship:Mother Address: Work Phone: City: [facility] Phone: State/[place] Code: Email: Financial Information Financial Class: Primary Plan Desc:[employer] [place] Primary Plan Number:[id number] Secondary Plan Desc: Secondary Plan Number: Assessment Information [facility] CM Progress Note CM Note CM Note Notes: Patient is POD #[address] Salma Wilde. I spoke with her about discharge - she is planning on returning home to [place], [place] with her mom and other family. She has outpatient PT scheduled for 6 weeks post-op. If she has any other discharge needs, CM can assist. Current CM Discharge plan: home with mom, outpatient PT Date Signed: 02/27/2017 11:53 AM Electronically Signed By:Kayla Yap RN Intervention Information
== END 2017-03-02 13:14 | disposition home or self-care (01) | DRG 482 ==
LOC: F3N 07:39
PROVIDERS: ADMIT Orthopaedic Surgery Sports Medicine; ATTEND Orthopaedic Surgery Sports Medicine
PROC: 0SS904Z Reposition Right Hip Joint with Internal Fixation Device, Open Approach (ICD-10-PCS; principal; 2017-02-26 09:30)
PROC: 0Q840ZZ Division of Right Acetabulum, Open Approach (ICD-10-PCS; principal; 2017-02-26 09:30)
DX: M25.851 Other specified joint disorders, right hip (principal); Q65.89 Other specified congenital deformities of hip
CPT/HCPCS: 97116-GP; 97161-GP; 97166-GO; 97530-GP; 97535-GO; C1713; J0690; J1100; J1170; J2250; J2270; J2274; J2370; J2405; J2704; J2765; J2780; J3010; J7060

== ENCOUNTER 2018-01-28 05:27 | Day surgery (SDC) | payer MEDICAID ==
--- NOTE | 2018-01-27 22:03 | PDGENHP ---
History and Physical - Chief Complaint RIGHT HIP PAIN - History of Present Illness 1. Bilateral~Femoroacetabular impingement (NORAH) Cam type,~with~resultant labral tear; RIGHT SIDE SYMPTOMATIC 2. Bilateral~Hip Dyplasia 3. ~~Early Arthritis 4. ~~Clinical suspicion of antetorsion HISTORY OF PRESENT ILLNESS: Anais a 31 y.o.~very~~active female~who I have had the pleasure to consult on today. 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 Gina's~right~hip pain started March 2016, with~little~recalled trauma or injury, feeling her initial pain following a run, and with~no~previous complaints. Anahas~a known history of hip dysplasia. Presentation today is of~anterior and posterior~right~hip pain. ~The hip~does~ wake her~at night and does~click and catch on her. Sitting~can be a real struggle~for her.~Anadoes~report intermittent~suffering from lower back pain episodes.~ Anahas not~participated in physical therapy and has not~tried other conservative measures.~~~She~has not~received sufficient symptomatic improvement. Anahas~utilized medication for pain management, including NSAID~and recently a Medrol Dose Pack.~Anahas used medication for several~months. Anacomplains of intermittent~issues with the left~hip. ~ Anaunderstands that she~has a hip and pelvis problem which should be researched and wishes to get a better understanding of her~hip status, followed by an establishment of a treatment strategy, hoping she~would be able to get back to her~well being active life. History: Past medical history:~~ None which is relevant~ Relevant familial history:~Adult Onset Diabetes - Maternal Past surgical history:~ Left Shoulder [place] Right Hip Scope Right JOLEEN Anadenies problematic issues with general anesthesia in the past. I have reviewed, verified and agree with the past medical, surgical, family and social history. Current Medications:~has a current medication list which includes the following prescription(s): ibuprofen. ALLERGIES:~has No Known Allergies. Objective: Physical Examination: Gina~is 5~feet 9~inches tall and weighs 144.6~Lbs.~Gina~is AAO x3; she~is well -nourished, in NAD. Skin is warm and dry. ~Breathing is non-labored. ~CV with RRR by pulse. Abdomen is soft, NTND. Currently,~she~walks with a abnormal~antalgic, favoring left side~gait. Trendelenburg sign is~negative~and proprioception is reduced,~right~side. She~presents with moderate~signs of joint laxity. Beightons Score:~4 Lower spine examination is~negative~for sciatic or femoral nerve irritation with negative~SLR &~femoral stretch tests. Range of motion of the spine is normal~for flexion, extension, and rotations, with no~associated pain. Strength, Sensation and pulses are~normal -~bilaterally Ankles and knees exams are~normal~and no~mal-alignment is evident. She~has~left~.5~cm short leg length discrepancy. Thigh circumference is~symmetric~with no evidence for muscle atrophy~on both~ sides. Hip ROM (degrees): FL ER At 90~hip FL IR At 90~hip FL AB AD EX IR Neutral hip ER Neutral hip R 105 45 40 40 5 10 55 35 L 100 45 40 40 5 10 55 35 Specific hip and pelvis tests: Quadrant MLIAD Roll Add. Longus R +++ +++ +++ Negative L Negative Negative Negative Negative Glut. Med ITB Pos. Imp R Negative 5/5 strength Negative 5/5 strength Negative L Negative 5/5 strength Negative 5/5 strength Negative Squeeze test measured~normal Bony Symphysis pubis is~pain free~to touch while concentric activity of the rectus abdominis, does not~produce pain at its insertion. Ilio Psos specific tests are~negative for pain during cycling for~both hips~and remarkable for non painful snap~on the left.~ HF has~weakness and pain on the~the right hip. Anterior/lateral~capsule tenderness on the right side.~ Greater trochanteric burse is~painful~on the right hip. Piriformis tests: FAIR is~negative,~with no~local signs of neuritis related to sciatic nerve. SIJs examination is~normal~with normal~MILAD in relation and local tenderness. Hamstrings tests are~negative~functional contraction and negative~tendinopathy both hips. On a daily basis, the following percentages reflect~Gina's overall total pain: Deep hip:~100% Imaging: Radiology studies which I have personally reviewed, analyzed and measured are below: XR: AP of the hip and pelvis: Performed in a~good~technique Coccyx to pubic symphysis distance~1.6~cm. 14~degrees caudal [place] Lines are~preserved. Minimal~Pathological signs are seen in the Symphysis Pubis. Minimal~Pathological signs are seen at the Ischial tuberosity. ~ Specific measurements show: NSA~ LCE Sourcil~Angle Sharp's angle Lat. Cam Lat. Pincer C.Over~sign Head~Coverage % ATDmm R N 11 13 41 + - 12-1 69 N L N 18 13 43 + - 12-1 71 N Pos. wall sign ISS NAD ~~Dysplasia Comments R Negative Negative 16.2~mm ++ L Negative Negative 13.1~mm ++ Sclerosis Sup. Lat. OA Cysts Joint Space-WBZ Joint Space-Medial R Negative Negative Negative 3.5~mm 4.2~mm L Negative Negative Negative 3.5~mm 3.8~mm X Table lateral: Anterior cam lesion is~seen~on both hips. Alpha Angle: ~ Right~81~dergrees Left~72~degrees Impression and plan:Jama Fuentes~is a 32 y.o.~active female~suffering from symptomatic right~hip pain due to Femoroacetabular impingement (NORAH)~Cam type,~with~resultant labral tear and~ Hip Dyplasia,~causing significant disability to her~and altering her~sport and life activities. Physical examination, imaging, and~her~story correspond with the diagnosis mentioned above. I explained that hip dysplasia is a condition wherein the hip joint has excessive play~and instability due to a variety of factors, including the depth and adequacy of the socket, the orientation of the femur bone, and ligament laxity around the hip joint. Dysplasia ranges in severity from borderline to baljinder, with treatment options being specific to the specific nature of the problem. Left untreated, the instability in the hip joint can cause progressive tearing of the labrum and deterioration of the surface cartilage, ultimately resulting in progressive osteoarthritis of the hip. I explained that femoroacetabular impingement (ONRAH - Cam type) arises due to a bony or soft tissue conflict between the femur (ball) and acetabulum (socket) caused by an abnormality in the shape of the femoral head and neck. Over time, repetitive impingement can result in damage to the labrum and adjacent surface cartilage within the socket, ultimately giving rise to progressive osteoarthritis of the hip. I explained that although a labral tear can be a source of pain, it is rarely the root of the problem and typically occurs secondary to an underlying abnormality in the shape and mechanics of the hip joint. I reviewed conservative treatment options for Dysplasia and NORAH including activity modification to avoid positions of impingement or instability, physical therapy, non-steroidal anti-inflammatory medications, and various injections (corticosteroid and PRP) aimed at reducing inflammation in the hip joint or/and preventing dynamic instability and impingement. PRP injections may promote healing and reduce symptoms in certain cases but it will not repair chronically damaged tissue. Although these measures may help to buy time~and reduce current level of symptoms, they are not a definitive solution to the problem given the underlying abnormality in the shape of the hip joint. Patients who have failed conservative management and continue to experience symptoms are candidates for definitive surgical treatment, which may consist of hip arthroscopy alone or in combination with more invasive bony realignment procedures of the hip socket and/or femur called periacetabular osteotomy (JOLEEN) or derotational femoral osteotomy (DFO). Hip arthroscopy typically includes treating the labrum with either repair or reconstruction of the torn labrum; as well as addressing the underlying abnormalities by restoring the normal shape to the hip joint. If the cartilage is damaged a Microfracture surgical procedure may also be necessary to help stimulate the growth of fibrocartilage. If a patient requires a labral reconstruction or a Microfracture, the initial rehabilitation from the surgery may take longer, but the senior living results are typically favorable. I reviewed the technical aspects of periacetabular osteotomy (JOLEEN) including risks, benefits, and expected course of recovery.~Gina~understands that JOLEEN is an inpatient procedure carried out through two medium sized incisions on the front and back of the hip joint. The hip socket is cut, realigned, and stabilized with 2 3 internal screws. Risks include infection, bleeding, injury to nearby nerves or vessels, stiffness, persistent pain, instability, failure of bony healing, implant related complications, and venous thromboembolic disease. Rarely, revision surgery may be required to address these problems. Risks, potential complications, side effects and recovery from surgical procedure were discussed in length. We explained how this surgery is an open procedure, and though patients tend to do well in the long-term, it involves significant pain in the first 2-4 weeks post-op and a rather lengthy rehab.~Overall recovery takes approximately 6 12~months depending on the extent of damage and degree of repair. Anaunderstands that she~will undergo hip arthroscopy 1 week prior to the JOLEEN to address damage inside the hip joint. Anaunderstands that hip arthroscopy and JOLEEN are two separate procedures that are best performed one week apart, with the arthroscopy commencing first to "tighten up" any pathology evident in the hip joint (labral repair, etc.) and the JOLEEN open procedure occurring 7-10 days later to realign the acetabulum. Anawill review the info presented. In order to obtain more detailed information regarding the alignment, orientation, and shape of the bony hip and pelvis I will order a CT scan to be performed. The results of the CT scan, including femoral torsion and acetabular version measured values and 3D images, will aid me in deciding on the best treatment strategy and surgical pre-planning. In order to evaluate the integrity of the surface cartilage within the hip joint , I will order a delayed gadolinium enhanced MRI of cartilage (dGEMRIC). This study will determine whether~Anais a good candidate for hip preservation surgery. Anawill contact us if she~wishes to pursue further treatment in the future. Anais happy with this plan. I have also supplied~her~with handouts, outlining the expected surgical treatment and rehab involved. I wish~Anaall the best, ~~ Marissa Ott ATC History Information - Allergies/Home Medication List Allergies/Adverse Reactions: No Known Allergies Allergy (Verified 02/26/17 18:53) Home Medications: Herbals/Supplements -Info Only 01/16/18 [Last Taken Unknown] Ibuprofen 01/16/18 [Last Taken Unknown] Tylenol 01/16/18 [Last Taken Unknown] I have personally reviewed and updated: medical history - Social History Smoking Status: Never smoked Review of Systems Review of Systems: Physical Exam Physical Exam:
[2018-01-28] MEDS ORDERED: PREGABALIN 150 MG CAP PO ONE (05:46)
[2018-01-28] MEDS ORDERED: ACETAMINOPHEN 500 MG TAB PO ONE (05:46)
[2018-01-28] MEDS ORDERED: ceFAZolin 2 GM/DEXTROSE 100 ML IV ONE (05:46)
[2018-01-28] MEDS ORDERED: LIDOCAINE 1% 2 ML INJ ID PRN (05:47)
[2018-01-28] MEDS ORDERED: LR 1,000 ML IV ONE (05:47)
[2018-01-28] MEDS ORDERED: LIDOCAINE 1% 300 MG/30 ML SDV ONE ×2 (06:22→06:46)
[2018-01-28] MEDS ORDERED: PROMETHAZINE HCL 25 MG/ML INJ IVP PRN (06:27)
[2018-01-28] MEDS ORDERED: ACETAMINOPHEN 500 MG TAB PO PRN (06:27)
[2018-01-28] MEDS ORDERED: MEPERIDINE 25 MG/0.5 ML AMP IVP PRN (06:27)
[2018-01-28] MEDS ORDERED: PHENYLEPHRINE HCL 100 MCG/ML SYR IVP PRN (06:27)
[2018-01-28] MEDS ORDERED: METOCLOPRAMIDE 10 MG/2 ML VIAL IVP PRN (06:27)
[2018-01-28] MEDS ORDERED: NALOXONE HCL 0.4 MG/ML INJ IVP PRN (06:27)
[2018-01-28] MEDS ORDERED: ONDANSETRON 4 MG/2 ML VIAL IVP PRN (06:27)
[2018-01-28] MEDS ORDERED: LR 500 ML IV PRN (06:27)
[2018-01-28] MEDS ORDERED: MIDAZOLAM 2 MG/2 ML VIAL IVP ONE (06:27)
[2018-01-28] MEDS ORDERED: fentaNYL 100 MCG/2 ML INJ ONE ×4 (06:36→08:35)
[2018-01-28] MEDS ORDERED: ONDANSETRON 4 MG/2 ML VIAL ONE (06:36)
[2018-01-28] MEDS ORDERED: LIDOCAINE 2% 5 ML SDV ONE (06:36)
[2018-01-28] MEDS ORDERED: DEXAMETHASONE 4 MG/ML VIAL ONE (06:36)
[2018-01-28] MEDS ORDERED: PROPOFOL 200 MG/20 ML VIAL ONE (06:36)
[2018-01-28] MEDS ORDERED: SCOPOLAMINE HYDROBROMIDE 1 MG/3 DAYS PATCH TD SCH (07:00)
--- NOTE | 2018-01-28 07:10 | PDANEPAE ---
ANE Past Medical History - Cardiovascular History Hx Hypertension: No Hx Arrhythmias: No Hx Chest Pain: No Hx Coronary Artery / Peripheral Vascular Disease: No Hx CHF / Valvular Disease: No Hx Palpitations: No - Pulmonary History Hx COPD: No Hx Asthma/Reactive Airway Disease: No Hx Recent Upper Respiratory Infection: No Hx Oxygen in Use at Home: No Hx Sleep Apnea: No Sleep Apnea Screening Result - Last Documented: Negative - Neurologic History Hx Cerebrovascular Accident: No Hx Seizures: No Hx Dementia: No - Endocrine History Hx Diabetes: No - Renal History Hx Renal Disorders: No - Liver History Hx Hepatic Disorders: No - Neurological & Psychiatric Hx Hx Neurological and Psychiatric Disorders: No - Cancer History Hx Cancer: No - Congenital Disorder History Hx Congenital Disorders: No - GI History Hx Gastrointestinal Disorders: No - Other Health History Other Health History: right hip dysplasia with torn labrum - Chronic Pain History Chronic Pain: No - Surgical History Prior Surgeries: R HIP LABRAL REPAIR & JOLEEN. shoulder repair ANE Review of Systems Review of Systems: - Exercise capacity METS (RN): 5 METS ANE Patient History - Allergies Allergies/Adverse Reactions: No Known Allergies Allergy (Verified 02/26/17 18:53) - Home Medications Home Medications: Herbals/Supplements -Info Only 01/16/18 [Last Taken 01/14/18] Ibuprofen 01/16/18 [Last Taken 01/14/18] Tylenol 01/16/18 [Last Taken 01/26/18] - NPO status NPO Since - Liquids (Date): 01/27/18 NPO Since - Liquids (Time): 19:00 NPO Since - Solids (Date): 01/27/18 NPO Since - Solids (Time): 19:00 - Anes Hx Anes Hx: no prior problems - Smoking Hx Smoking Status: Never smoked - Family Anes Hx Family Hx Anesthesia Complications: none ANE Labs/Vital Signs - Vital Signs Blood Pressure: 132/73 Heart Rate: 70 Respiratory Rate: 16 O2 Sat (%): 96 Height: 175.26 cm Weight: 71.668 kg ANE Physical Exam - Airway Neck exam: FROM Mallampati Score: Class 1 Mouth exam: normal dental/mouth exam, small mouth opening - Pulmonary Pulmonary: no respiratory distress, no rales or rhonchi, clear to auscultation - Cardiovascular Cardiovascular: regular rate and rhythym, no murmur, rub, or gallop - ASA Status ASA Status: I
[2018-01-28] MEDS ORDERED: METOCLOPRAMIDE 10 MG/2 ML VIAL ONE (07:16)
[2018-01-28] MEDS ORDERED: PHENYLEPHRINE HCL 100 MCG/ML SYR ONE (07:42)
[2018-01-28] MEDS ORDERED: ePHEDrine SULFATE 25 MG/5 ML SYR ONE (07:57)
[2018-01-28] MEDS: fentaNYL 100 MCG/2 ML INJ IVP PRN ×4 (08:25→08:47)
[2018-01-28] MEDS ORDERED: HYDROmorphONE/DILAUDID 2 MG/ML INJ ONE (08:52)
[2018-01-28] MEDS: HYDROmorphONE/DILAUDID 2 MG/ML INJ IVP PRN ×2 (08:53→09:15)
--- NOTE | 2018-01-28 08:59 | POSTANESTH ---
Post Anesthetic Evaluation Cardiovascular Status: Normal, Stable Respiratory Status: Normal, Stable Level of Consciousness/Mental Status: Can Participate in Eval Pain Control: Inadeq, Add Tx Required Nausea/Vomiting Control: Adequate, Prn Tx Ordered Complications Possibly Related to Anesthesia: None Noted
[2018-01-28] MEDS ORDERED: oxyCODONE IR 5 MG TAB ONE ×2 (09:20→10:30)
[2018-01-28] MEDS: oxyCODONE IR 5 MG TAB PO PRN ×2 (09:22→10:31)
[2018-01-28] MEDS ORDERED: DIAZEPAM 5 MG/ML 1 ML SYR IVP PRN (09:27)
[2018-01-28] MEDS ORDERED: DIAZEPAM 5 MG/ML 1 ML SYR ONE (09:29)
[2018-01-28 11:13] VITALS: BP 106/63
--- NOTE | 2018-01-28 18:26 | POSTOPPROG ---
Post Op Note Date of Operation: 01/28/18 Surgeon: Ander Baker Police Captain: Dr Aguilera Anesthesia: GET(General Endotracheal) Pre-op Diagnosis: Right retained hardware Post-op Diagnosis: Same Procedure: Right hip hardware removal Inf/Abcess present in the surg proc area at time of surgery?: No
[2018-01-31] MEDS ORDERED: PATCH REMOVAL 1 EA PATCH TD SCH (06:59)
== END 2018-01-28 11:45 | disposition home or self-care (01) ==
LOC: FSGY 05:27
PROVIDERS: ATTEND Orthopaedic Surgery Sports Medicine
PROC: BQ10YZZ Fluoroscopy of Right Hip using Other Contrast (ICD-10-PCS; principal; 2018-01-28 07:15)
PROC: 0QP204Z Removal of Internal Fixation Device from Right Pelvic Bone, Open Approach (ICD-10-PCS; principal; 2018-01-28 07:15)
DX: T84.84XA Pain due to internal orthopedic prosthetic devices, implants and grafts, initial encounter (principal); Q65.9 Congenital deformity of hip, unspecified
CPT/HCPCS: J0690; J1100; J1170; J2250; J2370; J2405; J2704; J2765; J3010; J3360